=== PATIENT | female | born 1995 | race African-American/Black ===

== ENCOUNTER 2020-06-24 10:36 | Outpatient (RCR) | payer OTHER, SELFPAY ==
[2020-06-25] MEDS: RHO(D) IMMUNE GLOBULIN 300 MCG SYRINGE IM (22:11)
== END 2020-09-22 23:59 | disposition home or self-care (01) ==
LOC: ANHLAB 10:36
DX: Z29.13 Encounter for prophylactic Rho(D) immune globulin (principal); O36.0990 Maternal care for other rhesus isoimmunization, unspecified trimester, not applicable or unspecified; Z3A.00 Weeks of gestation of pregnancy not specified
CPT/HCPCS: 36415; 85461; 90384; 96372; J2790

== ENCOUNTER 2020-10-25 17:49 | Emergency (ER) | payer OTHER, SELFPAY ==
[2020-10-25 17:50] VITALS: BP 142/80; PULSE 90; RESP 16; TEMP 36.1; O2SAT 98
[2020-10-25 18:06] LABS: Basophils Percent Auto 0.2 % (0.2-1.2); Eosinophils Absolute Auto 0.1 K/mm3 (0-0.3); Eosinophils Percent Auto 0.6 % (0-4.4); Hematocrit 41.1 % (37.0-47.0); Hemoglobin 13.5 g/dL (12.0-15.0); Immature Granulocyte Absolute 0.03 K/mm3 (0.00-0.031); Immature Granulocyte Percent A 0.3 % (0-0.5); Lymphocytes Absolute Auto 2.86 K/mm3 (0.9-3.2); Lymphocytes Percent Auto 29.2 % (18.3-44.2); Mean Corpuscular HGB Conc 32.8 g/dl (32-36); Mean Corpuscular Hemoglobin 31.1 pg (26-34); Mean Corpuscular Volume 94.7 fl (80-100); Mean Platelet Volume 9.3 fl (7.4-10.4); Monocytes Absolute Auto 0.5 K/mm3 (0.1-0.6); Monocytes Percent Auto 5.3 % (2.6-8.5); Neutrophils Absolute Auto 6.3 K/mm3 (1.3-6.7); Neutrophils Percent Auto 64.4 % (45.5-73.1); Platelet Count Result 351 k/mm3 (150-375); Red Blood Count 4.34 M/mm3 (4.2-5.4); Red Cell Distribution Width 12.6 % (11.5-14.5); White Blood Count 9.8 K/mm3 (4.5-10.0)
[2020-10-25 18:19] LABS: Alanine Aminotransferase 23 U/L (4-35); Albumin Level 4.1 g/dL (3.5-5.1); Alkaline Phosphatase 74 U/L (38-126); Anion Gap 11 mmol/L (8-16); Aspartate Amino Transferase 31 U/L (14-36); Bilirubin,Total 0.4 mg/dL (0.2-1.3); Blood Urea Nitrogen 11 mg/dL (7-17); Calcium 9.6 mg/dL (8.4-10.2); Carbon Dioxide 21 mmol/L (22-30); Chloride 110 mmol/L (98-107); Estimated CRCL calculation 84 ml/min; Estimated Glomerular Filt Rate > 60; Glucose 101 mg/dL (65-105); Lipase 125 U/L (23-300); Potassium 3.5 mmol/L (3.4-5.0); Sodium 142 mmol/L (137-145)
[2020-10-25 19:07] LABS: Add Urine Microscopic? YES; Appearance Urine Clear (Clear); Bacteria Urine Trace /hpf; Bilirubin Urine Negative (Negative); Blood Urine Negative (Negative); Color Urine Yellow (Yellow); Glucose Urine UA Negative (Negative); Ketones Urine Negative (Negative); Leukocyte Esterase Ur Negative LEU/UL (Negative); Mucus Urine Few /lpf; Nitrate Urine Negative (Negative); Protein Urine 1+ mg/dL (Negative); RBC Urine 0-2 /hpf (0-2); Specific Grav Ur 1.025 (1.001-1.035); Squamous Epithelial Cell Urine Moderate /hpf (Few); Urobilinogen Urine Negative mg/dL (<2.0); WBC Urine 0-3 /hpf
--- NOTE | 2020-10-25 20:24 | ED.ABDPAIN ---
HPI - Abdominal Pain General Chief Complaint: Abdominal Pain Stated Complaint: stomach pain Time Seen by Provider: 10/25/20 20:09 Source: patient and RN notes reviewed Mode of arrival: ambulatory Limitations: no limitations History of Present Illness HPI narrative: This is a 25 year old female who presents for evaluation of epigastric abdominal pain since friday. She reports intermittent epigastric pain that last 5 minutes. She does not have currently. She states she had vomiting on Friday. She denies fever or chills. She states her pain is worse with eating. She reports she had a yellow stool today while in ER. She has tried taking ibuprofen for her pain. Related Data Allergies Allergy/AdvReac Type Severity Reaction Status Date / Time No Known Allergies Allergy Mild Unknown Uncoded 03/29/19 10:03 Review of Systems Review of Systems: All systems reviewed & are unremarkable except as noted in HPI and below PMFSH Past Medical History Medical History (Updated 10/26/20 @ 00:00 by Nolan Carbone) Patient denies medical problems Surgical History Surgical History History of section Social History Social History (Updated 04/04/19 @ 20:03 by Julia Wall) Smoking status: Smoker, status unknown Substance use: never Gender identity (if verbalized by the patient): Female Exam Const: General: no acute distress and alert Orientation/consciousness: patient oriented x3 Other: patient sitting in bed reading Eyes: EOM: EOMs intact bilaterally Resp: Effort & Inspection: normal respiratory effort and no retractions Auscultation: clear to auscultation bilaterally Cardio: Rate: regular rate Rhythm: regular rhythm Heart sounds: no murmurs GI: GI Palp: Yes Soft to palpation, Yes Tenderness to palpation present (GI) (mild LUQ), No Guarding due to palpation present (GI) and No Rigid due to palpation Auscultation: normal bowel sounds Skin: General skin exam: normal color Rashes: no rashes Neuro: General: patient oriented x3, moves all extremities and CN's II-XI intact bilaterally Psych: Mental Status: mental status grossly normal Affect: normal affect Course Reevaluation(s) Reevaluation #1: I discussed with patient that labs are normal and she does not have pain now so no further evaluation needed emergently. I discussed she will be treated for possible gastritis, vs PUD Date: 10/25/20 Vital Signs Vital signs: Vital Signs Temperature 96.9 F L 10/25/20 17:50 Pulse Rate 90 10/25/20 17:50 Respiratory Rate 16 10/25/20 17:50 Blood Pressure 142/80 H 10/25/20 17:50 Pulse Oximetry 98 10/25/20 17:50 Temperature 96.9 F L 10/25/20 17:50 Pulse Rate 82 10/25/20 21:23 Respiratory Rate 16 10/25/20 21:23 Blood Pressure 131/72 10/25/20 21:23 Pulse Oximetry 100 10/25/20 21:23 MDM - Abdominal Pain Lab Data Attestation: I reviewed the patient's lab results. Result diagrams: 10/25/20 17:57 10/25/20 17:57 Labs: Lab Results 10/25/20 10/25/20 10/25/20 Range/Units 17:57 17:57 18:45 WBC 9.8 (4.5-10.0) K/mm3 RBC 4.34 (4.2-5.4) M/mm3 Hgb 13.5 (12.0-15.0) g/dL Hct 41.1 (37.0-47.0) % MCV 94.7 (80-100) fl MCH 31.1 (26-34) pg MCHC 32.8 (32-36) g/dl RDW 12.6 (11.5-14.5) % Plt Count 351 (150-375) k/mm3 MPV 9.3 (7.4-10.4) fl Immature Gran % (Auto) 0.3 (0-0.5) % Neut % (Auto) 64.4 (45.5-73.1) % Lymph % (Auto) 29.2 (18.3-44.2) % Chester % (Auto) 5.3 (2.6-8.5) % Eos % (Auto) 0.6 (0-4.4) % Baso % (Auto) 0.2 (0.2-1.2) % Lymph # (Auto) 2.86 (0.9-3.2) K/mm3 Chester # (Auto) 0.5 (0.1-0.6) K/mm3 Eos # (Auto) 0.1 (0-0.3) K/mm3 Baso # (Auto) 0.0 (0.0-0.1) K/mm3 Abs Immat Gran (auto) 0.03 (0.00-0.031) K/mm3 Absolute Neuts (auto) 6.3 (1.3-6.7) K/mm3 Absolute Nucleated RBC 0.0 (0.0-0.012) K/mm3 Nu
[2020-10-25] MEDS: BELLADONNA ALK/PHENOB ELIX 10 ML, MAG HYDROX/ALUMINUM HYD/SIMETH 30 ML, LIDOCAINE HCL 2... PO (20:47)
[2020-10-25 21:23] VITALS: BP 131/72; PULSE 82; RESP 16; O2SAT 100
== END 2020-10-25 21:24 | disposition home or self-care (01) ==
PROVIDERS: Emergency Medicine; Emergency Provider General Practice
DX: R10.13 Epigastric pain (principal)
CPT/HCPCS: 36415; 80053; 81001; 81025; 83690; 85025; 99283; A9270

== ENCOUNTER 2021-08-27 12:08 | Emergency (ER) | payer OTHER, SELFPAY ==
[2021-08-27 12:38] VITALS: BP 119/70; PULSE 83; RESP 16; TEMP 36.3; O2SAT 100
--- NOTE | 2021-08-27 15:49 | ED.WOUNDLAC ---
HPI - Wound/Laceration General Chief Complaint: Wound/Laceration <Sharyn Gentile PA-C - Last Filed: 08/27/21 17:20> Stated Complaint: hand laceration <MAURISIO Felton Last Filed: 08/27/21 17:20> Time Seen by Provider: 08/27/21 15:32 <MAURISIO Felton Last Filed: 08/27/21 17:20> Source: patient <MAURISIO Felton Last Filed: 08/27/21 17:20> Mode of arrival: ambulatory <MAURISIO Felton Last Filed: 08/27/21 17:20> Limitations: no limitations <MAURISIO Felton Last Filed: 08/27/21 17:20> History of Present Illness HPI narrative: This is a 26-year-old female that presents to the emergency department for a laceration to the left hand sustained just prior to arrival. Reports she was cutting meat and accidentally cut the left hand. She is not up-to-date on tetanus. Also reports she has a migraine headache today. Reports history of chronic migraines since she was a child. This one is not any different or worse than her usual. No recent injury or trauma. The pain is throbbing and associated with vomiting and photophobia. Denies fever, stiff neck, vision changes, decreased range of motion, numbness or weakness. <MAURISIO Felton Last Filed: 08/27/21 17:20> Related Data Allergies/Adverse Reactions: Allergies Allergy/AdvReac Type Severity Reaction Status Date / Time No Known Allergies Allergy Mild Unknown Uncoded 03/29/19 10:03 <MAURISIO Felton Last Filed: 08/27/21 17:20> Review of Systems Review of Systems: CONSTITUTIONAL: Denies fever EYES: Denies visual changes GASTROINTESTINAL: Reports nausea, vomiting SKIN: Reports laceration NEUROLOGIC: Reports headache. Denies numbness, or weakness. <MAURISIO Felton Last Filed: 08/27/21 17:20> All systems reviewed & are unremarkable except as noted in HPI and below <MAURISIO Felton Last Filed: 08/27/21 17:20> [facility] Past Medical History Medical History: Medical History (Updated 08/27/21 @ 17:20 by Sharyn Gentile PA-C) Patient denies medical problems <Sharyn Gentile PA-C - Last Filed: 08/27/21 17:20> Surgical History Surgical History: Surgical History History of section <Sharyn Gentile PA-C - Last Filed: 08/27/21 17:20> Social History Social History: Social History (Updated 04/04/19 @ 20:03 by Julia Wall) Smoking status: Smoker, status unknown Substance use: never Gender identity (if verbalized by the patient): Female <Sharyn Gentile PA-C - Last Filed: 08/27/21 17:20> Exam Narrative: GENERAL: Well-appearing, well-nourished, and in no acute distress. HEAD: Normocephalic, atraumatic. EYES: PERRLA and EOMI. ENT: Nares clear, no rhinorrhea or epistaxis. Mucous membranes moist. Oropharynx without tonsillar hypertrophy exudate or other lesions. Bilateral TMs pearly gomez non-bulging NECK: Supple. No adenopathy or masses. CHEST: Clear to auscultation. No respiratory distress. No wheezes rales or rhonchi HEART: Regular rate and rhythm. No murmur heard. Normal peripheral pulses. EXTREMITIES: Normal range of motion. No edema. 1 cm superficial laceration at the base of the left thumb SKIN: Warm, dry, no rash. NEURO: No focal deficits. Alert and oriented x3. Cranial nerves II through XII grossly intact PSYCH: Normal mood and affect <Sharyn Genitle PA-C - Last Filed: 08/27/21 17:20> Course Vital Signs Vital signs: Vital Signs Temperature 97.3 F L 08/27/21 12:38 Pulse Rate 83 08/27/21 12:38 Respiratory Rate 16 08/27/21 12:38 Blood Pressure 119/70 08/27/21 12:38 Pulse Oximetry 100 08/27/21 12:38 Temperature 97.3 F L 08/27/21 12:38 Pulse Rate 83 08/27/21 12:38 Respiratory Rate 16 08/27/21 12:38 Blood Pressure 119/70 08/27/21 12:38 Pulse Oximetry 100 08/27/21 12:38 <Sharyn Gentile PA-C - Last Filed: 08/27/21 17:20> Pro
[2021-08-27] MEDS: SODIUM CHLORIDE 0.9% IV 1,000 ML 999 ML IV CONT (16:07)
[2021-08-27] MEDS: diphenhydrAMINE HCl INJ 50 MG/ML VIAL 25 MG IV PUSH (16:08)
[2021-08-27] MEDS: METOCLOPRAMIDE HCL INJ 10 MG/2 ML VIAL IV PUSH (16:09)
[2021-08-27] MEDS: KETOROLAC 30 MG/ML VIAL (*BKC) (16:09)
[2021-08-27] MEDS: TETANUS,DIPHTHERIA,AC PERTUSSIS ADULT (0.5 ML) BOOSTRIX IM (17:26)
== END 2021-08-27 17:37 | disposition home or self-care (01) ==
PROVIDERS: Emergency Provider General Practice
DX: S61.412A Laceration without foreign body of left hand, initial encounter (principal); G43.909 Migraine, unspecified, not intractable, without status migrainosus; Z23 Encounter for immunization; W26.0XXA Contact with knife, initial encounter; Y93.G1 Activity, food preparation and clean up
CPT/HCPCS: 90471; 90715; 96365; 96375; 99284; J0131; J1200; J1885; J2765; J7030

== ENCOUNTER 2022-01-29 23:26 | Emergency (ER) | payer OTHER, SELFPAY ==
[2022-01-29 23:32] VITALS: BP 131/78; RESP 16; TEMP 36.8
--- NOTE | 2022-01-29 23:44 | PC.NURSE ---
Pt reports for a couple of days she has had flu like s/s that include, N/V/D and ROMERO
[2022-01-30 01:15] LABS: Influenza A QL RT-PCR Negative (Negative); Influenza B QL RT-PCR Negative (Negative); SARS-CoV-2 RNA PCR Positive
[2022-01-30] MEDS: KETOROLAC (*BKC) 60 MG/2 ML VIAL IM (01:15)
--- NOTE | 2022-01-30 01:23 | ED.FEVER ---
HPI - Fever General Chief Complaint: Fever <MAURISIO Garza Last Filed: 01/30/22 02:29> Stated Complaint: fever <MAURISIO Garza Last Filed: 01/30/22 02:29> Time Seen by Provider: 01/30/22 00:43 <MAURISIO Garza Last Filed: 01/30/22 02:29> Source: patient <MAURISIO Garza Last Filed: 01/30/22 02:29> Mode of arrival: ambulatory <MAURISIO Garza Last Filed: 01/30/22 02:29> Limitations: no limitations <MAURISIO Garza Last Filed: 01/30/22 02:29> History of Present Illness HPI Narrative: Patient is a 26-year-old female who presents the ED with report of fever. Patient reports having intermittent fever, up to 101?F at home for the last 4 days. She also reports having cough, congestion, runny nose, muscle aches, headache, N/V. She has not tried anything for her symptoms. Denies any significant sore throat, abdominal pain, chest pain, difficulty breathing. Patient is vaccinated for COVID and influenza. Denies any recent sick contacts. <MAURISIO Garza Last Filed: 01/30/22 02:29> Related Data Allergies/Adverse Reactions: Allergies Allergy/AdvReac Type Severity Reaction Status Date / Time No Known Allergies Allergy Mild Unknown Uncoded 03/29/19 10:03 <MAURISIO Garza Last Filed: 01/30/22 02:29> Review of Systems Review of Systems: CONSTITUTIONAL: Reports fever. ENT: Reports rhinorrhea, congestion. Denies sore throat. CARDIOVASCULAR: Denies chest pain. RESPIRATORY: Reports cough. Denies dyspnea. GASTROINTESTINAL: Reports nausea, vomiting. Denies abdominal pain or diarrhea. MUSCULOSKELETAL: Reports myalgias. NEUROLOGIC: Reports headache. <MAURISIO Garza Last Filed: 01/30/22 02:29> All systems reviewed & are unremarkable except as noted in HPI and below <Sirisha Marie PA-C - Last Filed: 01/30/22 02:29> [facility] Past Medical History Medical History: Medical History No pertinent past medical history <Sirisha Marie PA-C - Last Filed: 01/30/22 02:29> Surgical History Surgical History: Surgical History History of section <Sirisha Marie PA-C - Last Filed: 01/30/22 02:29> Social History Social History: Social History (Updated 01/30/22 @ 01:28 by Sirisha Marie PA-C) Smoking status: Current every day smoker Substance use: never Gender identity (if verbalized by the patient): Female <Sirisha Marie PA-C - Last Filed: 01/30/22 02:29> Exam Narrative: GENERAL: Mildly ill appearing, well-nourished, non-toxic, in no acute distress. HEAD: Normocephalic, atraumatic. EYES: PERRL/EOMI, conjunctivae clear bilaterally. NOSE: Normal, no drainage. THROAT: Pharynx clear, no significant erythema, no exudate. MMs moist. NECK: Supple. No adenopathy, no masses. RESPIRATORY: Airway patent, respirations nonlabored. Clear to auscultation bilaterally, no rales, rhonchi, wheezing. CARDIOVASCULAR: Regular rate and rhythm without murmurs, rubs, or gallops. Peripheral pulses 2+ and equal bilaterally. ABDOMINAL: Soft, nontender, nondistended, no hepatosplenomegaly. Normoactive BS. MUSCULOSKELETAL: Moves all extremities. Strength/ROM intact without gross deformities. SKIN: Warm, dry, normal color. No rashes. NEURO: A&O X3. Speech clear. Cranial nerves II-XII grossly intact. Steady gait. No ataxic movements. PSYCHIATRIC: Appropriate mood and affect. Normal interaction. <Sirisha Marie PA-C - Last Filed: 01/30/22 02:29> Course [employer]/PA Physician Supervision I discussed this patient with LUIS MIGUEL Marie. I agree with the assessment and plan as documented. <Karl Willard MD - Last Filed: 01/30/22 21:19> Vital Signs Vital signs: Vital Signs Temperature 98.2 F 01/29/22 23:32 R
[2022-01-30 01:46] LABS: Basophils Percent Auto 0.5 % (0.2-1.2); Eosinophils Percent Auto 0.7 % (0-4.4); Hematocrit 47.3 % (37.0-47.0); Hemoglobin 16.2 g/dL (12.0-15.0); Immature Granulocyte Absolute 0.01 K/mm3 (0.00-0.031); Immature Granulocyte Percent A 0.2 % (0-0.5); Lymphocytes Absolute Auto 2.96 K/mm3 (0.9-3.2); Lymphocytes Percent Auto 69.8 % (18.3-44.2); Mean Corpuscular HGB Conc 34.2 g/dl (32-36); Mean Corpuscular Hemoglobin 31.9 pg (26-34); Mean Corpuscular Volume 93.1 fl (80-100); Mean Platelet Volume 9.5 fl (7.4-10.4); Monocytes Absolute Auto 0.3 K/mm3 (0.1-0.6); Monocytes Percent Auto 6.1 % (2.6-8.5); Neutrophils Percent Auto 22.7 % (45.5-73.1); Platelet Count Result 250 k/mm3 (150-375); Red Blood Count 5.08 M/mm3 (4.2-5.4); White Blood Count 4.2 K/mm3 (4.5-10.0)
[2022-01-30 01:54] LABS: Alanine Aminotransferase 19 U/L (6-35); Albumin Level 4.4 g/dL (3.5-5.1); Alkaline Phosphatase 64 U/L (38-126); Anion Gap 15 mmol/L (8-16); Aspartate Amino Transferase 38 U/L (14-36); Bilirubin,Total 0.3 mg/dL (0.2-1.3); Blood Urea Nitrogen 8 mg/dL (7-17); Calcium 8.4 mg/dL (8.4-10.2); Carbon Dioxide 23 mmol/L (22-30); Chloride 107 mmol/L (98-107); Estimated Glomerular Filt Rate > 60; Glucose 94 mg/dL (65-110); Sodium 145 mmol/L (137-145)
[2022-01-30 02:32] VITALS: BP 104/65; PULSE 86; RESP 20; TEMP 36.5; O2SAT 100
== END 2022-01-30 02:34 | disposition home or self-care (01) ==
PROVIDERS: Physician Assistant; Emergency Provider Preventive Medicine Aerospace Medicine
DX: U07.1 COVID-19 (principal); F17.200 Nicotine dependence, unspecified, uncomplicated
CPT/HCPCS: 36415; 80053; 85025; 87502; 96372; 99283; C9803; J1885; U0003; U0005